=== PATIENT | male | born 1970 | race Caucasian/White ===

== ENCOUNTER 2017-04-07 15:25 | Observation (INO) ==
--- NOTE | 2017-04-07 15:47 | Emergency Department Note ---
Disposition Clinical Impression: Chest pain, rule out acute myocardial infarction Disposition: Admitted As Inpatient Condition: Good Chest Pain HPI - General Chief Complaint: ED Chest Pain Stated Complaint: Chest pain Time Seen by Provider: 04/07/17 15:28 Source: patient, family Limitations: no limitations Vital Signs Reviewed: Yes Nursing Notes Reviewed: Yes - History of Present Illness HPI Narrative: 47-year-old male with a history of insulin-dependent diabetes, hypertension, hypercholesterolemia presents emergency Department with a chief complaint of intermittent chest pain. Chest pain is described as a tightness and occasionally radiates to the left arm. He experiences exertional dyspnea as well and has a history of COPD. This has been going on for several weeks but progressively worsening. He was told he had heart attacks in the past based on his EKG. He had a heart catheterization about 17 years ago but no stent placement. He reports chest tightness that can occur with exertion and at rest with occasional associated nausea. His father had an AK in his early 50s. Patient does continue to smoke. He denies any history of DVT or PE. Denies any lower extremity swelling or calf pain. His PCP schedule an outpatient nuclear stress test as well as echocardiogram but he missed the appointment. Severity scale (1-10): 7 - Related Data Home Medications Medication Instructions Recorded Confirmed Albuterol Sulfate [Ventolin Hfa] 2 puff IH Q4H PRN 04/07/17 04/07/17 Aspirin Enteric Coated [Aspirin EC] 325 mg PO DAILY 04/07/17 04/07/17 Atorvastatin [Lipitor] 40 mg PO HS 04/07/17 04/07/17 Buspirone HCl [Buspar] 10 mg PO BID 04/07/17 04/07/17 Fenofibrate Nanocrystallized 48 mg PO DAILY 04/07/17 04/07/17 [Tricor] Fluticasone Propionate Nasal 50 mcg NS DAILY 04/07/17 04/07/17 [Flonase] Levothyroxine [Synthroid] 250 mcg PO QAM 04/07/17 04/07/17 Lisinopril [Zestril] 5 mg PO DAILY 04/07/17 04/07/17 Loratadine [Claritin] 10 mg PO DAILY 04/07/17 04/07/17 Metformin HCl [Glucophage] 1,000 mg PO BID 04/07/17 04/07/17 Oxycodone HCl/Acetaminophen 1 each PO Q6H PRN 04/07/17 04/07/17 [Percocet 5-325 mg Tablet] Oxygen 2 - 4 l NS AD 04/07/17 04/07/17 Potassium Chloride [K-Tab ER] 20 meq PO DAILY 04/07/17 04/07/17 Subcutaneous Insulin Pump [T:Slim] 1 each MC AD PRN 04/07/17 04/07/17 Umeclidinium [place] [Incruse 62.5 mcg IH DAILY 04/07/17 04/07/17 Ellipta] Allergies Allergy/AdvReac Type Severity Reaction Status Date / Time No Known Allergies Allergy Verified 02/12/17 15:06 All systems ED: reviewed and negative except as stated. Constitutional: Denies: fever Cardiovascular: Reports: dyspnea on exertion. Denies: chest pain (No active symptoms) Gastrointestinal: Denies: abdominal pain, vomiting Musculoskeletal: Denies: back pain, neck pain Neurological: Denies: headache, weakness, numbness Chest Pain PMH - Past Medical History Medical history: Reports: COPD, diabetes, hypertension, thyroid disease Psychiatric history: Reports: no psych history - Social History Smoking Status: Current every day smoker Alcohol use: Reports: none Drug use: Reports: none Physical Exam General: Appears well, alert and oriented x 3 Cardiovascular: Mild systolic ejection murmur, S1, S2. No rubs or gallops. Respiratory: Breath sounds clear bilaterally. No wheezing, rales or rhonchi. No resp distress Abdomen: Soft, nontender. No guarding, rebound or rigidity. Eyes: Conjunctiva clear without scleral icterus HENT: No oral mucosal lesions. Moist mucous membranes Neuro: Alert, talkative and appropriate, stands and ambulates independently. Musculoskeletal: Very mild lower extremity swelling involving the ankles that is nonpitting. No asymmetry. No calf tenderness. Skin: No lesions. No diaphoresis. Normal turgor. Normal color Psych: Appropriate - General Limitations: no limitations General appearance: alert, in no apparent distress Course Vital Signs Temperature 98.0 F 04/07/17 15:29 Pulse Rate 83 04/07/17 15:29 Respiratory Rate 18 04/07/17 15:29 Blood Pressure 131/79 04/07/17 15:29 O2 Sat by Pulse Oximetry 95 04/07/17 15:29 Temperature 98.3 F 04/07/17 18:55 Pulse Rate 58 04/07/17 18:55 Respiratory Rate 18 04/07/17 18:55 Blood Pressure 105/67 04/07/17 18:55 O2 Sat by Pulse Oximetry 96 04/07/17 19:26 Oxygen Delivery Oxygen Delivery Room Air Chest Pain - Lab Data Result diagrams: 04/07/17 16:00 04/07/17 16:00 - EKG Data EKG results narrative: EKG shows a sinus rhythm with a rate of 80 bpm. There is no ST elevation or depression. No acute ischemic T-wave changes. Poor R-wave progression. Q waves in lead 3 and aVF as well as anterior/septal leads. Intervals within normal limits. Previous EKG on 02/12/17 shows similar Q waves without any other new changes. Attestation Statement - Attestation Attestation: I, Sarwat Harris, examined this patient and my medical decision-making was reviewed with the WOOD CABINETMAKER/PA/Advanced Practice Nurse/Resident Physician. I agree with the documented findings, disposition and treatment plan as described except to the extent set forth below. 47-year-old male presents with concerns of chest pain. Patient has been having intermittent chest pain over the past month which has progressively worsened and occurs with minimal exertion. Patient states he becomes diaphoretic and nauseated with these symptoms. States he has not syncopized. Patient was evaluated emergency department 2 weeks ago with similar symptoms and had admission recommended that time however he refused and wished to return home. His primary care provider scheduled outpatient stress test, he became nervous and did not go to his appointment however his symptoms have worsened. Patient has an initial negative troponin, his EKG shows normal sinus rhythm with rate of 80 without evidence of STEMI. Patient will be admitted to the hospital for further care and evaluation of acute chest pain to rule out ACS.
[2017-04-07 16:11] LABS: Basophils # 0.1 K/mcL (0.0-0.2); Basophils % 0.9 %; Eosinophils # 0.3 K/mcL (0.0-0.6); Eosinophils % 2.7 %; Hematocrit 41.7 % (37.5-50.1); Hemoglobin 14.1 g/dL (12.9-16.9); Immature Granulocytes % 0.4 % (0-4); Lymphocytes # 2.4 K/mcL (0.6-4.6); Lymphocytes % 25.6 %; Mean Corpuscular HGB Conc 33.8 g/dL (31.6-35.5); Mean Corpuscular Hemoglobin 27.8 pg (28.0-33.3); Mean Corpuscular Volume 82.1 fL (83.0-100.0); Mean Platelet Volume 10.6 fL (9.4-12.4); Monocytes # 0.5 K/mcL (0.0-1.3); Monocytes % 5.8 %; Platelet Count 247 K/mcL (140-400); Red Blood Count 5.08 M/mcL (4.19-5.50); Red Cell Distribution Width 13.7 % (11.5-14.5); Segmented Neutrophils % 64.6 %
[2017-04-07 16:23] LABS: BUN/Creatinine Ratio 14 (6-26); Blood Urea Nitrogen 12 mg/dL (8-26); Calcium 9.2 mg/dL (8.6-10.8); Carbon Dioxide 25 mEq/L (19-29); Chloride 105 mEq/L (98-109); Glucose 326 mg/dL (70-99); Osmolality,Calculated 302 (280-300); Potassium 4.4 mEq/L (3.5-4.5); Sodium 140 mEq/L (136-145); eGFR For African Americans > 60 (> 60); eGFR For Non-African Americans > 60 (> 60)
[2017-04-07 18:57] VITALS: BP 105/67
[2017-04-07] MEDS ORDERED: Acetaminophen 325 MG TABLET PO PRN (19:24)
[2017-04-07] MEDS ORDERED: Ondansetron 4 MG/2 ML VIAL IVP PRN (19:24)
[2017-04-07] MEDS ORDERED: Naloxone 0.4 MG/ML INJ IVP PRN (19:24)
[2017-04-07] MEDS ORDERED: *HR* OxyCODONE/APAP 5/325 TABLET PO PRN (19:26)
[2017-04-07] MEDS ORDERED: NON-FORMULARY MEDICATION 1 EACH EACH (Subcutaneous Insulin Pump [T:Slim] 1 EACH) MC PRN (19:26)
[2017-04-07] MEDS ORDERED: Ipratropium/Albuterol Neb 3 ML IH PRN (19:27)
[2017-04-07] MEDS ORDERED: Dextrose Gel 15 GM PO PRN ×2 (20:04)
[2017-04-07] MEDS ORDERED: *HR* Dextrose 50 % in Water (Syg) 50 ML SYRINGE IVP PRN (20:04)
[2017-04-07] MEDS ORDERED: D5% in Water 1,000 ML IVC PRN (20:04)
--- NOTE | 2017-04-07 20:09 | Internal Med History&Physical ---
Date of Encounter: 04/07/17 Time of Encounter: 20:06 Assessment and Plan (1) Chest pain Current visit: Yes Status: Acute Place in observation on telemetry. Cycle cardiac enzymes. Patient has a history of current tobacco use, strong family history and a history of type 2 diabetes mellitus. Pharmacological stress test in the morning. Echocardiogram. Qualifiers: Chest pain type: precordial pain Qualified Code(s): R07.2 - Precordial pain (2) Diabetes mellitus Current visit: Yes Status: Chronic Patient is currently on an insulin pump but his site malfunction and he does not have the supplies. He is at a basal rate of 2 units per hour. Will place the patient on 20 units Levemir twice a day while he is in the hospital. Sliding scale insulin. Resume by mouth medications. 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 Continue lisinopril. Qualifiers: Hypertension type: essential hypertension Qualified Code(s): I10 - Essential (primary) hypertension (4) Tobacco abuse Current visit: Yes Status: Chronic Counseled extensively regarding the need for smoking cessation. Patient requesting nicotine patch. We will order the same. (5) Morbid obesity with BMI of 40.0-44.9, adult Current visit: No Status: Chronic Internal Medicine - H&P: HPI Chief complaint: Chest pain Admitted From: Emergency Dept Plans for Post Hospital Care: Home History of present illness: Mr. Lizarraga is a 47 year old male with a history of type 2 diabetes mellitus, smoking who presents to the emergency department due to chest pain. Patient states that his chest pain has been ongoing for the last 2 months. However, it has been recently getting worse. He describes it as a stabbing sensation in the middle of the chest without any radiation of 8/10 intensity that is worsened with leaning forward and without any relieving factors. It is associated with some chest tightness. He also reports palpitations. He reports baseline shortness of breath but denies any recent worsening. He denies any cough, sputum production or wheezing. He denies any lightheadedness. He denies any fever or chills. He denies any nausea or diaphoresis associated with the chest pain. He denies any diarrhea, conservation, abdominal pain, urinary symptoms. Past Med Surg Social Fam HX - Past Medical History Attestation: Yes The following information was validated with the patient. Source: patient Medical history: COPD, diabetes, hyperlipidemia, hypertension, thyroid disease Psychiatric history: anxiety - Past Surgical History Surgical History: no surgical history - Social History Smoking Status: Current every day smoker Packs per day: 2 Smokeless Tobacco Status: Yes (occasional) Alcohol use: none Drug use: none Current living situation: Home - Independent Activity Level: Independent ambulation Recent Out of Country Travel Within the Last 8 Weeks: No Exposure or Possible Exposure to Illness During Travel: No - Family History Father Living Status: Age at : 65 Cause of : heart disease Hx Family Cardiac Disorders: Yes (mi and cva) Internal Medicine - H&P: Meds Albuterol Sulfate [Ventolin Hfa] 2 puff IH Q4H PRN 04/07/17 [History] Aspirin Enteric Coated [Aspirin EC] 325 mg PO DAILY 04/07/17 [History] Atorvastatin [Lipitor] 40 mg PO HS 04/07/17 [History] Buspirone HCl [Buspar] 10 mg PO BID 04/07/17 [History] Fenofibrate Nanocrystallized [Tricor] 48 mg PO DAILY 04/07/17 [History] Fluticasone Propionate Nasal [Flonase] 50 mcg NS DAILY 04/07/17 [History] Levothyroxine [Synthroid] 250 mcg PO QAM 04/07/17 [History] Lisinopril [Zestril] 5 mg PO DAILY 04/07/17 [History] Loratadine [Claritin] 10 mg PO DAILY 04/07/17 [History] Metformin HCl [Glucophage] 1,000 mg PO BID 04/07/17 [History] Oxycodone HCl/Acetaminophen [Percocet 5-325 mg Tablet] 1 each PO Q6H PRN [History] Oxygen 2 - 4 l NS AD 04/07/17 [History] Potassium Chloride [K-Tab ER] 20 meq PO DAILY 04/07/17 [History] Subcutaneous Insulin Pump [T:Slim] 1 each MC AD PRN 04/07/17 [History] Umeclidinium [place] [Incruse Ellipta] 62.5 mcg IH DAILY 04/07/17 [History] Allergies No Known Allergies Allergy (Verified 02/12/17 15:06) All Systems PM: A 10-system review of systems was performed and is negative for pertinent findings except as documented above in the HPI. Review of systems: 10 systems have been reviewed and are negative except as mentioned in the history of present illness - Constitutional Vitals: Temp Pulse Resp BP Pulse Ox 98.3 F 58 18 105/67 96 04/07/17 18:55 04/07/17 18:55 04/07/17 18:55 04/07/17 18:55 04/07/17 18:55 Exam: Gen.: Lying in bed. No acute distress. Eyes: Pupils equal, round and reactive to light. Extraocular muscles intact. ENT: Moist mucous membranes. No oropharyngeal erythema or discharge. Chest: Clear to auscultation bilaterally. No adventitious sounds present. Reduced breath sounds bilaterally. Not using accessory muscles of respiration. CVS: First and second heart sounds present. No murmurs, rubs or gallops. Distant heart sounds. Abdomen: Soft, nontender, obese. Bowel sounds present. No hepatosplenomegaly. Skin: No decubitus ulcers appreciated. BED LABORER: No focal neuro deficits present. Psychiatric: Alert, awake and oriented to time, place and person. Lymphatic system: No lymphadenopathy appreciated Internal Med - H&P Results - Labs CBC & Chem 7: 04/07/17 16:00 04/07/17 16:00 - EKG Data -: EKG Interpreted by Myself EKG shows normal: sinus rhythm, QRS complexes (Q waves in inferior leads) Rate: normal - EKG Data Prior EKG available for review: yes When compared to previous EKG: there is no significant change - Diagnostic Studies Chest x-ray Status: image reviewed by me (Patchy bibasilar airspace disease)
[2017-04-07] MEDS ORDERED: Nicotine 21 MG PATCH.TD24 TD SCH (20:15)
[2017-04-07] MEDS ORDERED: Insulin LISPRO 300 UNITS/3 ML VIAL SQ SCH (21:00)
[2017-04-07] MEDS ORDERED: Insulin DETEMIR 100 UNIT/ML X5UNITS SQ SCH (21:00)
[2017-04-07] MEDS ORDERED: *HR* Metformin 500 MG TABLET PO SCH (21:00)
[2017-04-08] MEDS ORDERED: Insulin LISPRO 300 UNITS/3 ML VIAL SQ SCH (07:30)
[2017-04-08] MEDS ORDERED: Loratadine 10 MG TABLET PO SCH (09:00)
[2017-04-08] MEDS ORDERED: Fluticasone Propionate Nasal 50 MCG/SPRAY BOTTLE NS SCH (09:00)
[2017-04-08] MEDS ORDERED: (Umeclidinium Bromide [Incruse Ellipta] 62.5 MCG) IH SCH (09:00)
[2017-04-08] MEDS ORDERED: Aspirin Enteric Coated 325 MG Tablet PO SCH (09:00)
--- NOTE | 2017-04-10 06:08 | Discharge Summary ---
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 of insulin (3) HTN (hypertension) Priority: Secondary Status: Chronic Qualifiers: Hypertension type: essential hypertension Qualified Code(s): I10 - Essential (primary) hypertension (4) Tobacco abuse Priority: Secondary Status: Chronic (5) Morbid obesity with BMI of 40.0-44.9, adult Priority: Secondary Status: Chronic - Discharge Medications Home Medications: Albuterol Sulfate [Ventolin Hfa] 2 puff IH Q4H PRN 04/07/17 [History] Aspirin Enteric Coated [Aspirin EC] 325 mg PO DAILY 04/07/17 [History] Atorvastatin [Lipitor] 40 mg PO HS 04/07/17 [History] Buspirone HCl [Buspar] 10 mg PO BID 04/07/17 [History] Fenofibrate Nanocrystallized [Tricor] 48 mg PO DAILY 04/07/17 [History] Fluticasone Propionate Nasal [Flonase] 50 mcg NS DAILY 04/07/17 [History] Levothyroxine [Synthroid] 250 mcg PO QAM 04/07/17 [History] Lisinopril [Zestril] 5 mg PO DAILY 04/07/17 [History] Loratadine [Claritin] 10 mg PO DAILY 04/07/17 [History] Metformin HCl [Glucophage] 1,000 mg PO BID 04/07/17 [History] Oxycodone HCl/Acetaminophen [Percocet 5-325 mg Tablet] 1 each PO Q6H PRN [History] Oxygen 2 - 4 l NS AD 04/07/17 [History] Potassium Chloride [K-Tab ER] 20 meq PO DAILY 04/07/17 [History] Subcutaneous Insulin Pump [T:Slim] 1 each MC AD PRN 04/07/17 [History] Umeclidinium [place] [Incruse Ellipta] 62.5 mcg IH DAILY 04/07/17 [History] Allergies/Adverse Reactions: Allergies No Known Allergies Allergy (Verified 02/12/17 15:06) - Notes to Outpatient Provider 1. Patient has been having chest pains for a long time and would require stress testing. However, patient has anxiety about the stress test (he is worried about worsening COPD with the pharmacological stress test and worried about having an [place] with the dobutamine stress ECHO) and is reluctant to get the same. He is willing to get an ECHO. Date of admission: 04/07/17 17:20 Primary care physician: Boris Santo MD - Patient Status Disposition: Left Against Medical Advice Condition: Fair Functional capacity at discharge: independent ambulation Overall status at discharge: patient is not back to baseline - Discharge Instructions Follow Up With: Boris Santo MD [Primary Care Provider] - - Diet and Activity Diet: diabetic diet, low salt diet Hospital course: Mr. Lizarraga is a 47 year old male who presented to hospital due to chest pain. He was placed on observation and a stress test and ECHO were planned. However, about 2 hours after I saw the patient, I got a page that the patient wanted to leave [facility]. I went to the patient's room to try to talk to him. However, by the time I went to the floor, the patient had already signed out the A paperwork and left the hospital as he had a family emergency to take care of. - Time Spent with Patient Total time spent providing and/or coordinating discharge services: - Constitutional Vitals: Temp Pulse Resp BP Pulse Ox 98.3 F 58 18 105/67 96 04/07/17 18:55 04/07/17 18:55 04/07/17 18:55 04/07/17 18:55 04/07/17 19:26
== END 2017-04-07 22:15 | disposition left against medical advice (07) ==
LOC: EMEROO 15:25 → 3BNU 15:25
PROVIDERS: ADMIT Internal Medicine Sleep Medicine; ATTEND Registered Nurse